=== PATIENT | male | born 1975 | race Caucasian/White ===

== ENCOUNTER 2024-08-16 13:45 | Emergency (ER) | payer SELFPAY ==
[~2024-08-16] VITALS: Ht 172.7 cm; Wt 85.0 kg
[2024-08-16 13:59] VITALS: O2SAT 100
[2024-08-16] MEDS ORDERED: NIRM1TAB6 PO (18:41)
[2024-08-16 18:54] VITALS: BP 146/98; PULSE 82; RESP 18; TEMP 36.8; O2SAT 100
== END 2024-08-16 18:54 | disposition home or self-care (01) ==
LOC: ER 13:45
DX: U07.1 COVID-19 (principal); Z79.899 Other long term (current) drug therapy
CPT/HCPCS: 99283